=== PATIENT | female | born 1975 | race Native Hawaiian/Other Pacific Islander ===

== ENCOUNTER 2016-12-22 22:32 | Emergency (ER) | payer BC ==
[~2016-12-22] VITALS: Ht 175.3 cm; Wt 90.7 kg
[~2016-12-22 22:32] MED LIST: FURO20TA67 PO; LEVO0.1T6 PO; LEVO0.2T35 PO; LEXAPRO10 MG PO; METOPROLOL25 M1 PO; SPIR50TA8 PO; ZANTAC 75 PO
[2016-12-22] MEDS ORDERED: CARDIZEM60 MG PO (23:57)
[2016-12-22 23:58] LABS: PLATELET COUNT 228 K/uL (152-353)
[2016-12-23 00:03] LABS: POTASSIUM 3.3 mmol/L (3.6-5.2); SODIUM 137 mmol/L (136-145)
[2016-12-23 01:45] VITALS: BP 115/79; TEMP 97.8
== END 2016-12-23 02:57 | disposition home or self-care (01) ==
LOC: ED 22:32
DX: R07.89 Other chest pain (principal)
CPT/HCPCS: 36415; 80053; 82550; 84484; 85027; 85610; 86318; 93005; 96374; 96375; 99284; J2270; J2405

== ENCOUNTER 2017-01-27 12:37 | Outpatient (CLI) | payer BC ==
[~2017-01-27 12:37] MED LIST changes: +CARDIZEM60 MG PO
== END 2017-01-27 19:11 | disposition home or self-care (01) ==
LOC: RAD 12:37
DX: S99.911A Unspecified injury of right ankle, initial encounter (principal); X58.XXXA Exposure to other specified factors, initial encounter; Y93.89 Activity, other specified; Y92.89 Other specified places as the place of occurrence of the external cause; Y99.8 Other external cause status

== ENCOUNTER 2017-04-10 09:38 | Outpatient (CLI) | payer BC | END 2017-04-10 11:05 | disposition home or self-care (01) | LOC: MAMMO 09:38 | DX: Z12.31 Encounter for screening mammogram for malignant neoplasm of breast (principal); E04.1 Nontoxic single thyroid nodule | CPT/HCPCS: G0202-TC ==

== ENCOUNTER 2017-04-11 08:18 | Outpatient (CLI) | payer BC | END 2017-04-11 19:24 | disposition home or self-care (01) | LOC: RAD 08:18 | DX: R13.10 Dysphagia, unspecified (principal) ==

== ENCOUNTER 2017-08-07 08:57 | Outpatient (CLI) | payer BC ==
[~2017-08-07 08:57] MED LIST changes: +ESCITALOPRAM10 MG PO; +LEVO0.1519 PO; +LEVOCETIRIZI PO; +LIPITOR20 MG PO
== END 2017-08-07 10:00 | disposition home or self-care (01) ==
LOC: US 08:57
DX: R94.5 Abnormal results of liver function studies (principal)

== ENCOUNTER 2017-09-27 17:47 | Emergency (ER) | payer BC ==
[~2017-09-27] VITALS: Ht 172.7 cm; Wt 90.7 kg
[2017-09-27 20:00] LABS: PLATELET COUNT 216 K/uL (152-353)
[2017-09-27 20:10] LABS: POTASSIUM 3.6 mmol/L (3.6-5.2); SODIUM 139 mmol/L (136-145)
[2017-09-27 21:18] VITALS: BP 134/89; TEMP 98.3
== END 2017-09-27 21:24 | disposition home or self-care (01) ==
LOC: ED 17:47
PROVIDERS: Specialist
DX: M54.9 Dorsalgia, unspecified (principal)
CPT/HCPCS: 80048; 81000; 85027; 99283; J2360

== ENCOUNTER 2017-11-09 07:59 | Outpatient (CLI) | payer BC | END 2017-11-09 22:15 | disposition home or self-care (01) | LOC: NM 07:59 | DX: R10.11 Right upper quadrant pain (principal) | CPT/HCPCS: A9541 ==

== ENCOUNTER 2018-10-18 15:40 | Outpatient (CLI) | payer OTHER ==
[~2018-10-18] VITALS: Ht 172.7 cm; Wt 132.9 kg
[2018-10-18 16:20] VITALS: BP 118/72; TEMP 98.8
== END 2018-10-18 21:42 | disposition home or self-care (01) ==
LOC: RAD 15:40 → INF 15:40 → RAD 21:42
DX: E86.0 Dehydration (principal); J09.X2 Influenza due to identified novel influenza A virus with other respiratory manifestations
CPT/HCPCS: 96360

== ENCOUNTER 2018-10-20 13:42 | Outpatient (CLI) | payer OTHER | END 2018-10-20 23:46 | disposition home or self-care (01) | LOC: LAB 13:42 | DX: R19.7 Diarrhea, unspecified (principal) | CPT/HCPCS: 83630; 87015; 87045; 87324; 87328; 87329; 87449; 87899 ==

== ENCOUNTER 2019-06-09 09:30 | Emergency (ER) | payer OTHER ==
[~2019-06-09] VITALS: Ht 172.7 cm; Wt 93.0 kg
[2019-06-09 09:34] VITALS: TEMP 97.5
[2019-06-09 10:15] LABS: PLATELET COUNT 188 K/uL (152-353)
[2019-06-09 10:24] LABS: POTASSIUM 3.9 mmol/L (3.6-5.2); SODIUM 140 mmol/L (136-145)
[2019-06-09 12:24] VITALS: BP 120/96
[2019-06-09 14:44] LABS: PARTIAL THROMBOPLASTIN TIME 32.6 SECONDS (24.5-33.6)
== END 2019-06-09 12:42 | disposition short-term general hospital (02) ==
LOC: ED 09:30
PROVIDERS: Hospitalist
DX: R07.89 Other chest pain (principal); R06.02 Shortness of breath
CPT/HCPCS: 36415; 80053; 82550; 83880; 84484; 85027; 85610; 85730; 93005; 96374; 99284; J2405

== ENCOUNTER 2019-06-09 12:47 | Outpatient (CLI) | payer OTHER | END 2019-06-09 14:41 | disposition short-term general hospital (02) | LOC: AMB 12:47 | DX: R11.0 Nausea (principal); R06.02 Shortness of breath; R07.9 Chest pain, unspecified | CPT/HCPCS: A0425; A0429 ==

== ENCOUNTER 2019-06-13 14:37 | Emergency (ER) | payer OTHER ==
[~2019-06-13] VITALS: Ht 172.7 cm; Wt 93.0 kg
[2019-06-13 15:14] LABS: PLATELET COUNT 238 K/uL (152-353)
[2019-06-13 15:28] LABS: POTASSIUM 3.8 mmol/L (3.6-5.2); SODIUM 138 mmol/L (136-145)
[2019-06-13 17:05] VITALS: BP 114/78; TEMP 97.8
== END 2019-06-13 17:05 | disposition home or self-care (01) ==
LOC: ED 14:37
PROVIDERS: Emergency Medicine
DX: M79.18 Myalgia, other site (principal)
CPT/HCPCS: 36415; 80053; 82150; 83690; 83735; 84484; 85027; 93005; 96374; 99284; J1885

== ENCOUNTER 2019-08-15 10:08 | Outpatient (CLI) | payer OTHER | END 2019-08-15 19:53 | disposition home or self-care (01) | LOC: MAMMO 10:08 | DX: Z13.820 Encounter for screening for osteoporosis (principal); Z12.31 Encounter for screening mammogram for malignant neoplasm of breast; Z78.0 Asymptomatic menopausal state ==

== ENCOUNTER 2019-08-26 21:40 | Emergency (ER) | payer OTHER ==
[~2019-08-26] VITALS: Ht 172.7 cm; Wt 90.7 kg
[2019-08-26 23:00] VITALS: BP 108/57; TEMP 97.9
== END 2019-08-26 23:10 | disposition home or self-care (01) ==
LOC: ED 21:40
DX: S90.31XA Contusion of right foot, initial encounter (principal); X50.1XXA Overexertion from prolonged static or awkward postures, initial encounter; Y92.89 Other specified places as the place of occurrence of the external cause
CPT/HCPCS: 99283

== ENCOUNTER 2019-12-24 10:41 | Outpatient (CLI) | payer OTHER | END 2019-12-24 20:38 | disposition home or self-care (01) | LOC: LABW 10:41 | DX: E03.9 Hypothyroidism, unspecified (principal); I10 Essential (primary) hypertension; E78.2 Mixed hyperlipidemia; E66.9 Obesity, unspecified | CPT/HCPCS: 36415; 84439; 84443 ==

== ENCOUNTER 2020-05-04 09:24 | Outpatient (CLI) | payer OTHER ==
[~2020-05-04 09:24] MED LIST changes: +ASPIR-8181 MG PO; +FENOFIBRATE50 MG PO; +LINZESS290 MCG PO; +LIPITOR40 MG PO; +OMEPRAZOLE40 MG PO; +ONDANSETRON4 M2 PO
== END 2020-05-04 22:36 | disposition home or self-care (01) ==
LOC: RAD 09:24
DX: M54.17 Radiculopathy, lumbosacral region (principal)

== ENCOUNTER 2020-12-18 12:39 | Outpatient (CLI) | payer OTHER ==
[~2020-12-18] VITALS: Ht 157.5 cm; Wt 104.8 kg
[2020-12-18 13:07] LABS: PLATELET COUNT 174 K/uL (152-353)
== END 2020-12-18 19:26 | disposition home or self-care (01) ==
LOC: INF 12:39
PROVIDERS: Internal Medicine; ATTEND Family Medicine
DX: Z23 Encounter for immunization (principal); U07.1 COVID-19
CPT/HCPCS: 36591; 80053; 85027; 96365; Q0239

== ENCOUNTER 2020-12-20 21:34 | Emergency (ER) | payer OTHER ==
[~2020-12-20] VITALS: Ht 172.7 cm; Wt 87.1 kg
[2020-12-20 22:14] LABS: POTASSIUM 3.6 mmol/L (3.6-5.2); SODIUM 142 mmol/L (136-145)
[2020-12-20 22:19] LABS: PLATELET COUNT 189 K/uL (152-353)
[2020-12-20 22:32] LABS: PARTIAL THROMBOPLASTIN TIME 22.1 SECONDS (24.5-33.6)
[2020-12-20 22:56] VITALS: BP 112/77; TEMP 98.6
== END 2020-12-20 22:56 | disposition home or self-care (01) ==
LOC: ED 21:34
PROVIDERS: Hospitalist
DX: R07.89 Other chest pain (principal); R09.1 Pleurisy
CPT/HCPCS: 36415; 80053; 82550; 83880; 84484; 85027; 85379; 85610; 85730; 93005; 96374; 96375; 99284; J1885; J2405

== ENCOUNTER 2021-01-05 07:57 | Outpatient (CLI) | payer OTHER | END 2021-01-05 19:05 | disposition home or self-care (01) | LOC: US 07:57 | PROVIDERS: ATTEND Nurse Practitioner Family | DX: R74.01 Elevation of levels of liver transaminase levels (principal) ==

== ENCOUNTER 2021-02-24 11:10 | Day surgery (SDC) | payer OTHER ==
[2021-02-17 08:50] LABS: PLATELET COUNT 198 K/uL (152-353)
[2021-02-17 09:03] LABS: POTASSIUM 4.1 mmol/L (3.6-5.2)
== END 2021-02-24 14:30 | disposition home or self-care (01) ==
LOC: OR 11:10
PROVIDERS: ATTEND Internal Medicine Gastroenterology
PROC: 0DB68ZZ Excision of Stomach, Via Natural or Artificial Opening Endoscopic (ICD-10-PCS; principal; 2021-02-24)
PROC: 0DB88ZZ Excision of Small Intestine, Via Natural or Artificial Opening Endoscopic (ICD-10-PCS; 2021-02-24)
PROC: 0D738ZZ Dilation of Lower Esophagus, Via Natural or Artificial Opening Endoscopic (ICD-10-PCS; 2021-02-24)
DX: K21.00 Gastro-esophageal reflux disease with esophagitis, without bleeding (principal); K22.2 Esophageal obstruction; K29.50 Unspecified chronic gastritis without bleeding; R13.19 Other dysphagia; R10.11 Right upper quadrant pain; R11.0 Nausea; E88.89 Other specified metabolic disorders; Z20.822 Contact with and (suspected) exposure to COVID-19
CPT/HCPCS: 80053; 85027; 87635; J2704; J7120; U0003

== ENCOUNTER 2021-03-11 11:19 | Outpatient (CLI) | payer OTHER | END 2021-03-11 22:44 | disposition home or self-care (01) | LOC: RAD 11:19 | PROVIDERS: ATTEND Nurse Practitioner Family | DX: S81.812A Laceration without foreign body, left lower leg, initial encounter (principal) ==

== ENCOUNTER 2021-06-24 13:00 | Emergency (ER) | payer OTHER ==
[~2021-06-24] VITALS: Ht 175.3 cm; Wt 88.5 kg
[2021-06-24 13:03] VITALS: TEMP 98.7
[2021-06-24 13:39] LABS: PLATELET COUNT 215 K/uL (152-353)
[2021-06-24 13:47] LABS: SODIUM 143 mmol/L (136-145)
[2021-06-24 15:17] VITALS: BP 116/71
[2021-06-24 15:35] LABS: PARTIAL THROMBOPLASTIN TIME 29.2 SECONDS (24.5-33.6)
== END 2021-06-24 15:24 | disposition home or self-care (01) ==
LOC: ED 13:00
PROVIDERS: Hospitalist
DX: R07.89 Other chest pain (principal); I16.0 Hypertensive urgency; F17.210 Nicotine dependence, cigarettes, uncomplicated
CPT/HCPCS: 80053; 82550; 83880; 84484; 85027; 85610; 85730; 93005; 99283

== ENCOUNTER 2021-12-01 15:19 | Emergency (ER) | payer OTHER ==
[~2021-12-01] VITALS: Ht 175.3 cm; Wt 88.5 kg
[2021-12-01 15:30] VITALS: BP 109/81; TEMP 98.1
[2021-12-01 16:00] VITALS: BP 129/89
[2021-12-01 16:30] VITALS: BP 123/70
[2021-12-01 16:37] LABS: PLATELET COUNT 200 K/uL (152-353)
[2021-12-01 17:00] VITALS: BP 137/88
[2021-12-01 17:51] VITALS: BP 128/78
== END 2021-12-01 18:10 | disposition still patient (30) ==
LOC: ED 15:19 → MED/SURG 17:22 → ED 18:10
PROVIDERS: Hospitalist
DX: R07.89 Other chest pain (principal); Z53.29 Procedure and treatment not carried out because of patient's decision for other reasons; Z20.822 Contact with and (suspected) exposure to COVID-19
CPT/HCPCS: 36415; 80053; 82550; 83880; 84484; 85027; 85610; 85730; 87635; 93005; 96374; 99284; J2405; U0003

== ENCOUNTER 2022-02-08 09:02 | Outpatient (CLI) | payer OTHER | END 2022-02-08 18:56 | disposition home or self-care (01) | LOC: US 09:02 | PROVIDERS: ATTEND Family Medicine | DX: E03.9 Hypothyroidism, unspecified (principal) ==

== ENCOUNTER 2022-05-12 16:26 | Outpatient (CLI) | payer OTHER | END 2022-05-12 19:29 | disposition home or self-care (01) | LOC: CT 16:26 | PROVIDERS: ATTEND Nurse Practitioner Family | DX: R51.9 Headache, unspecified (principal) ==

== ENCOUNTER 2022-08-16 15:29 | Outpatient (CLI) | payer OTHER | END 2022-08-16 20:02 | disposition home or self-care (01) | LOC: CT 15:29 | PROVIDERS: ATTEND Nurse Practitioner Family | DX: R10.9 Unspecified abdominal pain (principal) ==

== ENCOUNTER 2022-11-08 12:19 | Outpatient (CLI) | payer OTHER ==
[~2022-11-08] VITALS: Ht 175.3 cm; Wt 88.5 kg
[2022-11-08 12:40] VITALS: BP 108/81; TEMP 98
[2022-11-08 14:00] VITALS: BP 112/82; TEMP 97.8
[2022-11-08 14:01] LABS: POTASSIUM 3.6 mmol/L (3.6-5.2)
== END 2022-11-08 23:21 | disposition home or self-care (01) ==
LOC: INF 12:19
PROVIDERS: ATTEND Family Medicine
DX: E86.0 Dehydration (principal)
CPT/HCPCS: 80053; 96360

== ENCOUNTER → 2022-11-21 | Outpatient (CLI) | payer OTHER | LOC: RAD 14:56 | PROVIDERS: ATTEND Nurse Practitioner Family | DX: N20.2 Calculus of kidney with calculus of ureter (principal) ==

== ENCOUNTER 2023-04-26 10:59 | Outpatient (CLI) | payer OTHER ==
[~2023-04-26 10:59] MED LIST changes: +AIMOVIG140 MG/ML SC; +EZET10TA13 PO; +GNP IBUPROFEN PO; +LEVO-T175 MCG PO; +PROMETHAZINE12.5 M3 PO; +RIZATRIPTAN BEN10 MG PO; +ROSUVASTATIN CA40 MG PO; +SPIRONOLACT25 MG PO; +TIADYLT ER120 MG PO; +TOPI100T PO; +TRAM50TA PO
[2023-04-26 11:26] LABS: POTASSIUM 3.6 mmol/L (3.6-5.2); SODIUM 137 mmol/L (136-145)
== END 2023-04-26 21:03 | disposition home or self-care (01) ==
LOC: RESP 10:59
PROVIDERS: ATTEND Nurse Practitioner Family
DX: R53.83 Other fatigue (principal)
CPT/HCPCS: 36415; 80053; 82550; 82553; 84484; 93005